=== PATIENT | female | born 1990 | race Caucasian/White ===

== ENCOUNTER 2020-08-21 04:42 | Emergency (ER) | payer OTHER ==
[~2020-08-21] VITALS: Ht 162.6 cm; Wt 61.2 kg
--- NOTE | ~2020-08-21 | EMS ---
[facility] [address] [place] [address] EMS Patient Care Report Name: MAYLIN CORDOVA Room #: REG RIKKI Mora#: [id number] Admission: 08/21/20 Attend Phys: Discharge: Date of : 89 Report #: [id number] THIS REPORT FOR: //name// Report Transmitted: 08/21/2020 04:12 EMS Care Summary [place], [place]/[facility] Incident [id number] @ 08/21/2020 04:08 Incident Location [address] [place] [address] Patient MAYLIN CORDOVA Female, 30 Years 1990 Patient Address [address] [place] [address] Patient History None Reported, Patient Allergies No known allergies, Patient Medications None Reported, Chief Complaint I hate some meth Disposition Transported No Lights/[place] Reason Overdose/Poisoning/Ingestion Transported To [facility] Narrative Ate some meth, rock type product. PD on the scene. Pt was walking towards the ambulance, very anxious where she climbed in and sat down w/o incident. She said she ate a rock type substance that was supposed to be meth. She is very figidity at this time. Vitals obtained. En route: vitals repeated. RR to [facility] [address] [place] [address] EMS Patient Care Report Name: MAYLIN CORDOVA Room #: REG Morgan#: [id number] Admission: 08/21/20 Attend Phys: Discharge: Date of : 89 Report #: [id number] [facility]. Arrived: pt taken to ER #10 and moved to their bed w/o incident. Pt care and report to ER staff. Initial Vitals @04:24P: 144,R: 16,BP: 152/98,Pain: 0/10,GCS: 15,Revised Trauma: 12, @04:26P: 120,R: 16,BP: 139/83,Pain: 0/10,GCS: 15,Revised Trauma: 12, Assessments @04:23MENTAL:Person Oriented,Time Oriented,Event Oriented,Place Oriented,SKIN:HEENT:LUNG SOUNDS:ABDOMEN:PELVIS//GI:EXTREMITIES:Left Arm: No Abnormalities,Right Arm: No Abnormalities,Left Leg: No Abnormalities,Right Leg: No Abnormalities,PULSE:Radial: 2+ Normal,NEURO: Impression Overdose - Hallucinogens Procedures @04:23ALS AssessmentResponse: UnchangedSucceeded@04:24StretcherResponse: Unchanged Timeline 04:05,Call Received 04:05,Dispatch Notified 04:08,Dispatched 04:10,En Route 04:22,On Scene 04:23,At Patient 04:23,ALS Assessment,Response: UnchangedSucceeded, 04:24,Stretcher,Response: Unchanged 04:24,BP: 152/98 M,PULSE: 144,RR: 16 R,SPO2: Ox,ETCO2: ,BG: ,PAIN: 0,GCS: 15, 04:26,BP: 139/83 M,PULSE: 120,RR: 16 R,SPO2: Ox,ETCO2: ,BG: ,PAIN: 0,GCS: 15, 04:28,Depart Scene 04:40,At Destination 04:53,Call Closed Disclaimer [email or web address] Copyright 2020 [employer] This EMS Care Summary contains data elements from the applicable legal record (which may be displayed differently). It is designed to provide pertinent information for the following purposes: continuity of care, clinical quality, and state data reporting. The complete legal record is available to ED staff and administrators of the receiving hospital in [employer] Patient Tracker. All data is provided "as is."
[2020-08-21 06:37] LABS: AMP/METHAMP POSITIVE (Negative); BARBITURATES Negative (Negative); BENZODIAZEPINES Negative (Negative); COCAINE Negative (Negative); METHADONE Negative (Negative); OPIATES Negative (Negative); PCP Negative (Negative)
--- NOTE | 2020-08-21 07:04 | EKG ---
[address] [address] ELECTROCARDIOGRAM REPORT Name: MAYLIN CORDOVA Room #: REG RIKKI Mora#: [id number] Admission: 08/21/20 Attend Phys: Discharge: Date of : 89 Report #: [id number] [facility] ED Test Date: 2020-08-21 Test Time: 04:49:07 Pat Name: MAYLIN CORDOVA Department: Room: Gender: F Creative Services Director: CASA : 1990 Requested By: Ty Hanna Order Number: [id number] MD: Mario Saul Measurements Intervals [place] Rate: 116 P: 83 AL: 147 QRS: 88 QRSD: 91 T: -42 QT: 351 QTc: 488 Interpretive Statements Sinus tachycardia Nonspecific T abnormalities, inferior leads Borderline prolonged QT interval No previous ECG available for comparison Electronically Signed On 08-21-2020 7:03:57 [employer] by Mario Saul [email or web address] <ELECTRONICALLY SIGNED> By: Mario Saul MD, [facility] 08/21/20 [phone] Mario Saul MD, FACC /EPI
[2020-08-21 08:30] VITALS: BP 123/72
== END 2020-08-21 08:41 | disposition still patient (30) ==
LOC: ER 04:42
PROVIDERS: Emergency Medicine
DX: R42 Dizziness and giddiness (principal); T43.625A Adverse effect of amphetamines, initial encounter; Y92.89 Other specified places as the place of occurrence of the external cause